=== PATIENT | male | born 1960 | race African-American/Black ===

== ENCOUNTER 2023-10-24 02:27 | Emergency (ER) | payer MEDICARE ==
[~2023-10-24] VITALS: Ht 190.5 cm; Wt 120.0 kg
[2023-10-24 03:08] LABS: BASOPHILS % 0.1 % (0.0-2.0); EOSINOPHILS % 0.2 % (0.0-5.0); HEMATOCRIT. 44.7 % (42.0-52.0); HEMOGLOBIN. 15.1 g/dL (14.0-18.0); MEAN CORPUSCULAR HEMOGLOBIN 28.2 pg (28.0-32.0); MEAN CORPUSCULAR HGB CONC 33.7 g/dL (31.0-37.0); MEAN CORPUSCULAR VOLUME 83.7 fL (80.0-94.0); MEAN PLATELET VOLUME 7.1 fl (7.4-10.4); MONOCYTES % 4.7 % (2.0-8.0); PLATELET 236 x1000/uL (130-400); RED BLOOD CELL COUNT 5.34 mill/uL (4.7-6.1); RED CELL DISTRIBUTION WIDTH 14.9 % (11.6-14.6); WHITE BLOOD COUNT 9.4 x1000/uL (4.5-11.0)
[2023-10-24 03:18] LABS: CHLORIDE 104 mEq/L (98-107); POTASSIUM 3.8 mEq/L (3.5-5.1); SODIUM 136 mEq/L (136-145)
[2023-10-24 03:19] LABS: CALCIUM 8.5 mg/dL (8.7-10.4); CARBON DIOXIDE 24 mEq/L (21-32)
[2023-10-24] MEDS: SODIUM CHLORIDE 0.9% 1,000 ML IV ONE (03:22)
[2023-10-24 03:24] LABS: CREATININE 0.8 mg/dL (0.6-1.3); ETHANOL BLOOD 147 mg/dL (<10); GLUCOSE 128 mg/dL (70-105); UREA NITROGEN BLOOD 5 mg/dL (9-23)
[2023-10-24 03:25] LABS: LACTIC ACID 3.2 mmol/L (0.4-2.0); TROPONIN I HIGH SENSITIVITY 10 ng/L (3.0-53)
[2023-10-24 03:26] VITALS: O2SAT 99
[2023-10-24] MEDS: ONDANSETRON HCL 4MG/2ML INJ IV STA (03:26)
[2023-10-24] MEDS: MIDAZOLAM HCL 2 MG/2 ML VIAL IV ONE (03:26)
[2023-10-24 05:18] LABS: *AMPHETAMINES SCREEN URINE NEGATIVE (NEGATIVE); *BARBITURATES SCREEN URINE NEGATIVE (NEGATIVE); *BENZODIAZEPINES SCREEN URINE NEGATIVE (NEGATIVE); *COCAINE SCREEN URINE PRESUMPTIVE POSITIVE (NEGATIVE); CANNABINOID URINE SCREEN PRESUMPTIVE POSITIVE (NEGATIVE); ECSTASY MDMA SCREEN URINE NEGATIVE (NEGATIVE); METHADONE URINE SCREEN NEGATIVE (NEGATIVE); OPIATES URINE SCREEN NEGATIVE (NEGATIVE); PHENCYCLIDINE URINE SCREEN NEGATIVE (NEGATIVE)
[2023-10-24] MEDS: IOHEXOL-350 100 ML BOTTLE ONE (05:33)
[2023-10-24] MEDS: KETOROLAC 15MG/ML VIAL IV ONE ×2 (05:43→07:54)
[2023-10-24 06:38] LABS: TROPONIN I HIGH SENSITIVITY 11 ng/L (3.0-53)
[2023-10-24 09:30] VITALS: BP 151/84; PULSE 75; RESP 26; TEMP 98.1
== END 2023-10-24 09:45 | disposition home or self-care (01) ==
LOC: ER 02:27 → EDBEDREQTM 05:06 → EDBEDREQ 05:06 → ER 09:45
DX: R07.89 Other chest pain (principal); I11.0 Hypertensive heart disease with heart failure; I50.9 Heart failure, unspecified; F41.9 Anxiety disorder, unspecified
CPT/HCPCS: 80305; 80048; 80320; 83880; 83605; 83690; 85025; 85379; 84484; 36415; 71045; 71275; 96361; 96374; 96375; 96376; 99285; Q9967; J1885; J2250; J2405; J7030; G0480